=== PATIENT | male | born 1985 | race Asian ===

== ENCOUNTER 2016-11-21 19:31 | Emergency (ER) | payer BC ==
[~2016-11-21] VITALS: Ht 182.9 cm; Wt 134.7 kg
[2016-11-21 20:44] LABS: PLATELET COUNT 224 K/uL (142-355)
[2016-11-21 21:59] VITALS: BP 161/85; TEMP 98.9
== END 2016-11-21 22:00 | disposition home or self-care (01) ==
LOC: ED 19:31
DX: R10.9 Unspecified abdominal pain (principal); K59.00 Constipation, unspecified; N30.90 Cystitis, unspecified without hematuria; K57.90 Diverticulosis of intestine, part unspecified, without perforation or abscess without bleeding; J06.9 Acute upper respiratory infection, unspecified
CPT/HCPCS: 36415; 80053; 81000; 85027; 87081; 87804; 87880; 96374; 99284; J1885

== ENCOUNTER 2017-02-05 08:14 | Emergency (ER) | payer BC ==
[~2017-02-05] VITALS: Ht 182.9 cm; Wt 133.8 kg
[2017-02-05 08:23] VITALS: TEMP 97.4
[2017-02-05] MEDS ORDERED: LISI5TAB10 PO (08:27)
[2017-02-05] MEDS ORDERED: AMLO2.5T PO (08:28)
[2017-02-05 09:40] VITALS: BP 180/108
== END 2017-02-05 09:42 | disposition home or self-care (01) ==
LOC: ED 08:14
DX: M10.9 Gout, unspecified (principal); M21.611 Bunion of right foot
CPT/HCPCS: 36415; 84550; 99283

== ENCOUNTER 2017-02-06 14:10 | Emergency (ER) | payer BC ==
[~2017-02-06] VITALS: Ht 185.4 cm; Wt 133.8 kg
[~2017-02-06 14:10] MED LIST: AMLO2.5T PO; LISI5TAB10 PO
[2017-02-06 16:20] VITALS: BP 155/99; TEMP 98
== END 2017-02-06 16:59 | disposition home or self-care (01) ==
LOC: ED 14:10
DX: M10.9 Gout, unspecified (principal); I10 Essential (primary) hypertension
CPT/HCPCS: 96372; 99283; J1885

== ENCOUNTER 2017-05-16 21:28 | Emergency (ER) | payer BC ==
[~2017-05-16] VITALS: Ht 182.9 cm; Wt 137.9 kg
[2017-05-16 22:20] VITALS: BP 158/96; TEMP 98.5
== END 2017-05-16 22:21 | disposition home or self-care (01) ==
LOC: ED 21:28
DX: M25.471 Effusion, right ankle (principal)
CPT/HCPCS: 99281

== ENCOUNTER 2017-07-24 09:24 | Emergency (ER) | payer BC ==
[~2017-07-24] VITALS: Ht 182.9 cm; Wt 127.0 kg
[2017-07-24 09:28] VITALS: BP 150/87; TEMP 98.3
== END 2017-07-24 09:50 | disposition home or self-care (01) ==
LOC: EDSTATUS 09:24 → ED 09:24
DX: M79.602 Pain in left arm (principal)
CPT/HCPCS: 99281

== ENCOUNTER 2018-01-01 13:05 | Inpatient (IN) | payer OTHER ==
[~2018-01-01] VITALS: Ht 182.9 cm; Wt 138.0 kg
[2018-01-01 13:18] VITALS: BP 159/99; TEMP 98
[2018-01-01 14:38] LABS: PLATELET COUNT 165 K/uL (142-355)
[2018-01-01 14:48] LABS: POTASSIUM 3.7 mmol/L (3.6-5.2)
[2018-01-01 17:41] VITALS: BP 154/80; TEMP 99.9; Ht 182.9 cm; Wt 138.0 kg
[2018-01-01] MEDS ORDERED: AMLODIPINE BESYLATE PO (17:57)
[2018-01-01] MEDS ORDERED: LISI10TA11 PO (17:57)
[2018-01-01 20:00] VITALS: BP 154/98; TEMP 99.2
[2018-01-02] VITALS: BP 150/90; TEMP 102.1
[2018-01-02 04:00] VITALS: BP 152/90; TEMP 98.3
[2018-01-02 08:31] VITALS: BP 162/89; TEMP 99
[2018-01-02 12:32] VITALS: BP 139/73; TEMP 99.7
[2018-01-02 17:13] VITALS: BP 179/77; TEMP 99.6
[2018-01-02 20:00] VITALS: BP 136/80; TEMP 101.9
[2018-01-03] VITALS: BP 198/102; TEMP 100
[2018-01-03 04:00] VITALS: BP 151/98; TEMP 98.1
[2018-01-03 08:00] VITALS: BP 178/98; TEMP 98.6
[2018-01-03 12:00] VITALS: BP 144/93; TEMP 98
== END 2018-01-03 15:45 | disposition home or self-care (01) | DRG 195 ==
LOC: ED 13:05 → MED/SURG 16:05
PROVIDERS: Internal Medicine; ADMIT Family Medicine
DX: J18.8 Other pneumonia, unspecified organism (principal); I10 Essential (primary) hypertension; R05 Cough
CPT/HCPCS: 36415; 80048; 81000; 85027; 87040; 87070; 87205; 87804; 94640; 94664; 94760; 96361; 96365; 99284; J0456; J1956; J2930

== ENCOUNTER 2018-05-06 21:45 | Inpatient (IN) | payer OTHER ==
[~2018-05-06] VITALS: Ht 182.9 cm; Wt 122.5 kg
[2018-05-06 21:40] VITALS: BP 140/93; TEMP 98.5
[~2018-05-06 21:45] MED LIST changes: -GLIM2TAB PO; -METF500T PO; -PROAIR HFA IN
[2018-05-06 22:00] VITALS: BP 138/90
[2018-05-06 22:10] LABS: PLATELET COUNT 271 K/uL (142-355)
[2018-05-06 22:25] LABS: POTASSIUM 4.3 mmol/L (3.6-5.2)
[2018-05-07] VITALS (27 sets, daily range): BP systolic 105–148; BP diastolic 68–107; TEMP 97.2–99.3; Ht 182.9 cm; Wt 122.5 kg
[2018-05-07] MEDS ORDERED: METF500T PO
[2018-05-07] MEDS ORDERED: PROAIR HFA IN
[2018-05-07] MEDS ORDERED: GLIM2TAB PO (00:01)
[2018-05-07 05:29] LABS: POTASSIUM 3.6 mmol/L (3.6-5.2)
[2018-05-07 09:36] LABS: PLATELET COUNT 255 K/uL (142-355)
[2018-05-07 09:47] LABS: POTASSIUM 3.3 mmol/L (3.6-5.2)
[2018-05-08] VITALS (9 sets, daily range): BP systolic 123–136; BP diastolic 68–102; TEMP 98–99.3
[2018-05-08 07:59] LABS: PLATELET COUNT 174 K/uL (142-355)
[2018-05-08 08:11] LABS: POTASSIUM 3.5 mmol/L (3.6-5.2)
[2018-05-09 03:59] VITALS: BP 127/81; TEMP 98.1
[2018-05-09 08:00] VITALS: BP 136/92; TEMP 97.9
[2018-05-09 08:40] LABS: PLATELET COUNT 146 K/uL (142-355)
[2018-05-09 12:00] VITALS: BP 121/72; TEMP 99
[2018-05-09 13:09] LABS: POTASSIUM 3.6 mmol/L (3.6-5.2)
== END 2018-05-09 15:00 | disposition home or self-care (01) | DRG 639 ==
LOC: ED 21:45 → ICU 23:30 → MED/SURG 05-08 12:00
PROVIDERS: Pediatrics; ADMIT Family Medicine
DX: E11.10 Type 2 diabetes mellitus with ketoacidosis without coma (principal); E86.0 Dehydration; I10 Essential (primary) hypertension; D64.89 Other specified anemias; D72.828 Other elevated white blood cell count; N28.9 Disorder of kidney and ureter, unspecified
CPT/HCPCS: 36415; 36600; 74022; 80053; 80307; 81000; 81002; 82805; 82947; 82948; 82962; 83036; 83735; 84100; 85027; 87077; 87086; 87088; 87185; 94760; 96360; 96361; 96372; 96374; 96376; 99285; J0295; J1650; J1815; J3490

== ENCOUNTER → 2018-05-06 | Outpatient (CLI) | payer OTHER ==
[~2018-05-06] MED LIST changes: +AMLODIPINE BESYLATE PO; +GLIM2TAB PO; +LISI10TA11 PO; +METF500T PO; +PROAIR HFA IN
== END | disposition short-term general hospital (02) ==
LOC: AMB 21:02
DX: R11.11 Vomiting without nausea (principal)
CPT/HCPCS: A0425; A0429

== ENCOUNTER 2018-06-07 22:35 | Observation (INO) | payer OTHER ==
[~2018-06-07] VITALS: Ht 182.9 cm; Wt 129.0 kg
[~2018-06-07 22:35] MED LIST changes: +GLIM2TAB PO; +METF500T PO; +PROAIR HFA IN
[2018-06-07 22:42] VITALS: BP 170/111; TEMP 97.5
[2018-06-07 23:27] LABS: PLATELET COUNT 254 K/uL (142-355)
[2018-06-07 23:36] LABS: POTASSIUM 3.8 mmol/L (3.6-5.2); SODIUM 140 mmol/L (136-145)
[2018-06-07 23:44] LABS: PARTIAL THROMBOPLASTIN TIME 26.3 SECONDS (24.5-33.6)
[2018-06-08] VITALS (8 sets, daily range): BP systolic 132–164; BP diastolic 75–109; TEMP 98.3–99.4; Ht 182.9 cm; Wt 129.0 kg
[2018-06-09 04:00] VITALS: BP 148/96; TEMP 98.3
[2018-06-09 07:16] VITALS: BP 172/88; TEMP 98.3
[2018-06-09 10:25] VITALS: BP 179/110
[2018-06-09 12:15] VITALS: BP 151/91; TEMP 98.2
== END 2018-06-09 12:37 | disposition home or self-care (01) ==
LOC: ED 22:35 → MED/SURG 06-08 00:01
DX: R07.89 Other chest pain (principal); E11.9 Type 2 diabetes mellitus without complications; I10 Essential (primary) hypertension; M94.0 Chondrocostal junction syndrome [Tietze]
CPT/HCPCS: 36415; 80053; 80307; 82550; 84484; 85027; 85610; 85730; 93005; 94760; 96365; 96366; 96372; 96375; 99220; 99284; G0378; J1650; J1885; J2270

== ENCOUNTER 2019-10-26 11:47 | Emergency (ER) | payer OTHER ==
[~2019-10-26] VITALS: Ht 182.9 cm; Wt 125.7 kg
[2019-10-26 11:53] VITALS: TEMP 98
[2019-10-26 13:19] LABS: PLATELET COUNT 296 K/uL (142-355)
[2019-10-26 13:26] LABS: POTASSIUM 4.2 mmol/L (3.6-5.2)
[2019-10-26 16:00] VITALS: BP 164/101
== END 2019-10-26 16:33 | disposition home or self-care (01) ==
LOC: ED 11:47
PROVIDERS: Emergency Medicine
DX: I50.9 Heart failure, unspecified (principal); R06.00 Dyspnea, unspecified; I10 Essential (primary) hypertension; E11.9 Type 2 diabetes mellitus without complications; F17.210 Nicotine dependence, cigarettes, uncomplicated; R00.0 Tachycardia, unspecified
CPT/HCPCS: 36415; 80053; 83735; 83880; 85027; 85379; 93005; 94664; 96374; 96375; 99284; J1940; J2930; Q9963

== ENCOUNTER 2019-12-05 06:13 | Emergency (ER) | payer OTHER ==
[~2019-12-05] VITALS: Ht 182.9 cm; Wt 125.6 kg
[2019-12-05 06:20] VITALS: TEMP 97.5
[2019-12-05 07:21] LABS: PLATELET COUNT 209 K/uL (142-355)
[2019-12-05 07:25] LABS: POTASSIUM 4.1 mmol/L (3.6-5.2)
[2019-12-05 09:17] VITALS: BP 142/98
== END 2019-12-05 09:18 | disposition home or self-care (01) ==
LOC: ED 06:13
PROVIDERS: Family Medicine
DX: M10.9 Gout, unspecified (principal); M79.672 Pain in left foot; I10 Essential (primary) hypertension
CPT/HCPCS: 80053; 84550; 85027; 96372; 99283; J1885

== ENCOUNTER 2020-01-20 07:55 | Emergency (ER) | payer OTHER ==
[~2020-01-20] VITALS: Ht 182.9 cm; Wt 125.6 kg
[2020-01-20 08:26] VITALS: TEMP 97.5
[2020-01-20 08:56] LABS: PLATELET COUNT 221 K/uL (142-355)
[2020-01-20 09:11] LABS: POTASSIUM 3.8 mmol/L (3.6-5.2)
[2020-01-20 11:12] VITALS: BP 167/128
== END 2020-01-20 11:31 | disposition home or self-care (01) ==
LOC: ED 07:55
PROVIDERS: Emergency Medicine
DX: I10 Essential (primary) hypertension (principal); I50.9 Heart failure, unspecified; R79.89 Other specified abnormal findings of blood chemistry; R00.0 Tachycardia, unspecified; F17.210 Nicotine dependence, cigarettes, uncomplicated
CPT/HCPCS: 80053; 82550; 82553; 83880; 84484; 85027; 85379; 94664; 96374; 99284; J2930

== ENCOUNTER 2020-01-22 07:30 | Observation (INO) | payer OTHER ==
[~2020-01-22] VITALS: Ht 182.9 cm; Wt 128.6 kg
[2020-01-22] VITALS (12 sets, daily range): BP systolic 151–187; BP diastolic 99–132; TEMP 97.6–99.9; Ht 182.9 cm; Wt 128.6 kg
[2020-01-22 08:12] LABS: PLATELET COUNT 217 K/uL (142-355)
[2020-01-23] VITALS: BP 156/93; TEMP 98.2
[2020-01-23 04:00] VITALS: BP 150/96; TEMP 98.1
[2020-01-23 05:10] LABS: PLATELET COUNT 227 K/uL (142-355)
[2020-01-23 05:17] LABS: POTASSIUM 3.6 mmol/L (3.6-5.2)
--- NOTE | 2020-01-23 07:46 | NUR ---
NOTED ELEVATED B/P PATIENT OOB UP IN CHAIR DENIES CHEST PAIN DENIES PAIN STATES "FEELING GOOD" WILL GIVE B/P MEDS THIS AM
[2020-01-23 08:00] VITALS: BP 151/98; TEMP 97.8
--- NOTE | 2020-01-23 10:00 | NUR ---
RECIEVED AM MEDS NO COMPLAINTS DR MATTA VISITED.
--- NOTE | 2020-01-23 13:45 | NUR ---
PT CALLED REQUESTING HIS IV BE TOOK OUT THAT HE WAS LEAVING. REMINDED PT THAT WE WERE WAITING TO SEE IF HIS BLOOD PRESSURE HAD COME DOWN FROM THE MEDICATION HE WAS GIVEN. PT STATES "IT IS NOT GOING TO COME DOWN, ITS BEEN UP AND IT'LL STAY UP, NO MATTER WHAT MEDICINE I TAKE." REPORTED PT'S STATEMENT TO DR. MATTA. PT STATES "IF YOU DON'T TAKE THIS IV OUT THEN I WILL, IM LEAVING AND I AM TIRED OF WAITING" NOTIFIED DR. MATTA. REPORTED PT'S CURRENT BP TO DR. MATTA 141/116. DR. MATTA STATED OK ILL COMPLETE HIS DISCHARGE. NOTIFIED PT. PT AGREED TO WAIT ON DISCHARGE.
--- NOTE | 2020-01-23 14:00 | NUR ---
PT IV DC'D TIP INTACT NO REDNESS OR SWELLING NOTED. PT TOELRATED WELL. TELEMETRY REMOVED. PT GIVEN DISCHARGE INSTRUCTIONS. PT INSTRUCTED TO CHECK BLOOD PRESSURE TWICE A DAY AND KEEP A LOG TO TAKE WITH HIM TO FOLLOW UP APPT. PT VERBALIZED UNDERSTANDING. PT EDUCATED AND INSTRUCTED ON EACH NEW MEDICATION AND HOW TO TAKE EACH ONE AND WHAT THEY WERE FOR. PT VERBALIZED UNDERSTANDING. PT INSTRUCTED TO FOLLOW UP WITH HIS PRIMARY DOCTOR IN 5-7 DAYS TO HAVE LAB WORK REPEATED AND BLOOD PRESSURE CHECKED. PT EDUCATED ON SIGNS AND SYMPTOMS OF HEART ATTACK OR STROKE. AGAIN PT VERBALIZED UNDERSTANDING. PT REQUESTED TO AMBULATE OUT. PT DISCHARGED AT THIS TIME.
== END 2020-01-23 14:00 | disposition home or self-care (01) ==
LOC: ED 07:30 → MED/SURG 11:30
PROVIDERS: Emergency Medicine; Internal Medicine Endocrinology, Diabetes & Metabolism; ADMIT Family Medicine
DX: R06.09 Other forms of dyspnea (principal); I51.7 Cardiomegaly; Z91.19 Patient's noncompliance with other medical treatment and regimen; I12.9 Hypertensive chronic kidney disease with stage 1 through stage 4 chronic kidney disease, or unspecified chronic kidney disease; E11.22 Type 2 diabetes mellitus with diabetic chronic kidney disease; E11.65 Type 2 diabetes mellitus with hyperglycemia; N18.3 Chronic kidney disease, stage 3 (moderate)
CPT/HCPCS: 36415; 80048; 80053; 80307; 81000; 82550; 83036; 83880; 84484; 85027; 87502; 93005; 93306; 94664; 96374; 96375; 96376; 99220; 99284; G0378; J0360; J1815; J1940

== ENCOUNTER 2020-03-01 15:46 | Emergency (ER) | payer OTHER ==
[~2020-03-01] VITALS: Ht 182.9 cm; Wt 131.7 kg
[2020-03-01 17:08] LABS: PLATELET COUNT 205 K/uL (142-355)
[2020-03-01 17:15] LABS: POTASSIUM 3.5 mmol/L (3.6-5.2)
[2020-03-01 19:29] VITALS: BP 152/99; TEMP 98
== END 2020-03-01 19:39 | disposition home or self-care (01) ==
LOC: ED 15:46
PROVIDERS: Family Medicine
DX: I10 Essential (primary) hypertension (principal); I50.9 Heart failure, unspecified; E87.6 Hypokalemia; R60.9 Edema, unspecified
CPT/HCPCS: 80053; 81000; 83880; 85027; 96374; 99284; J1940

== ENCOUNTER 2021-03-31 06:33 | Emergency (ER) | payer OTHER ==
[~2021-03-31] VITALS: Ht 182.9 cm; Wt 127.0 kg
[2021-03-31] MEDS ORDERED: LISI20TA11 PO (06:59)
[2021-03-31] MEDS ORDERED: HYDRALAZINE20 MG/ML (07:04)
[2021-03-31 07:19] LABS: PLATELET COUNT 176 K/uL (142-355)
[2021-03-31 07:29] LABS: POTASSIUM 3.7 mmol/L (3.6-5.2)
[2021-03-31 07:42] LABS: PARTIAL THROMBOPLASTIN TIME 22.6 SECONDS (24.5-33.6)
[2021-03-31 09:21] VITALS: BP 140/110; TEMP 98
== END 2021-03-31 09:40 | disposition home or self-care (01) ==
LOC: ED 06:33
PROVIDERS: Hospitalist
DX: I16.0 Hypertensive urgency (principal); R07.89 Other chest pain; Z20.822 Contact with and (suspected) exposure to COVID-19
CPT/HCPCS: 36415; 80053; 82550; 83880; 84484; 85027; 85610; 85730; 87635; 93005; 96374; 96375; 96376; 99284; J0360; J1940; J3490; U0003